=== PATIENT | female | born 1940 | race Caucasian/White ===

== ENCOUNTER → 2017-01-02 | Outpatient (CLI) | payer MEDICARE, MEDICAID ==
[~2017-01-02] MED LIST: ASPIRIN 81M81 MG/TA2 PO; BONIVA1 MG/ML; CALCIUM + D 5001 TAB; CHEMO; INSLANT SC; LAMISIL250 MG PO; LEVOXYL0.1 MG PO; LIPITOR 10MG10 MG; LIPITOR20 MG PO; NEULASTA6 MG/0.6 M; NOVLOG SC; PERCOCET 325 MG1 TA2 PO; PRINIVIL20 MG PO; VITAMIN B121000 MC2 SL
== END ==
LOC: MC.RAD 12:53
DX: Z12.31 Encounter for screening mammogram for malignant neoplasm of breast (principal)

== ENCOUNTER → 2018-01-07 | Outpatient (CLI) | payer MEDICARE, MEDICAID | LOC: MC.RAD 13:23 | DX: Z12.31 Encounter for screening mammogram for malignant neoplasm of breast (principal) ==

== ENCOUNTER 2018-11-04 12:40 | Observation (INO) | payer MEDICARE, MEDICAID ==
[~2018-11-04] VITALS: Ht 160 cm; Wt 66.9 kg
[~2018-11-04 12:40] MED LIST changes: +INSULIN HUMA100 U/ML SQ; -LIPITOR 10MG10 MG; +LIPITOR 10MG10 MG PO; -NOVLOG SC; +VITAMIN B11000 MCG/M IM; -VITAMIN B121000 MC2 SL
[2018-11-04 13:46] LABS: BASO % 0.2 % (0.0-2.0); EOS % 0.3 % (0-4.0); GRAN # 7.2 (1.4-6.5); GRAN % 81.2 % (42.2-75.2); HEMATOCRIT 39.2 % (37.0-47.0); HEMOGLOBIN 12.8 g/dl (12.5-16.0); LYMPH # 1.1 (1.2-3.4); LYMPH % 12.5 % (20.0-51.0); MEAN CELL VOLUME 90 fl (80.0-100.0); MEAN CORPUSCULAR HEMOGLOBIN 29 pg (27.0-31.0); MEAN CORPUSCULAR HGB CONC 33 g/dl (33.0-37.0); MEAN PLATELET VOLUME 12.2 fl (7.4-10.4); MONO # 0.5 (0.1-0.6); MONO % 5.5 % (1.7-9.3); PLATELET COUNT 213 K/mm3 (130-400); RED BLOOD COUNT 4.35 M/mm3 (4.10-5.30); REDCELL DISTRIBUTION WIDTH-CV 14.1 % (11.5-14.5)
[2018-11-04 13:54] LABS: ALANINE AMINOTRANSFERASE 32 U/L (9-52); ALBUMIN 4.2 gm/dL (3.5-5.0); ALKALINE PHOSPHATASE 71 U/L (50-136); ANION GAP 8 mmol/L (7-16); AST,SGOT 27 U/L (15-37); BLOOD UREA NITROGEN 16 mg/dL (7-17); CALCIUM 9.6 mg/dL (8.4-10.2); CARBON DIOXIDE 26 mmol/L (22-30); CHLORIDE 97 mmol/L (98-107); CREATININE, serum 0.71 mg/dL (0.52-1.25); GLUCOSE 306 mg/dL (74-106); POTASSIUM 4.5 mmol/L (3.4-5.0); SODIUM 131 mmol/L (137-145); TOTAL PROTEIN 7.3 gm/dL (6.4-8.2)
[2018-11-04 13:55] LABS: C-REACTIVE PROTEIN < 0.5 mg/dL (0.0-0.9)
[2018-11-04 14:07] LABS: ERYTHROCYTE SEDIMENTATION RATE 1 mm/hr (0-30); TROPONIN-I < 0.012 ng/mL (0.000-0.034)
[2018-11-04 15:48] LABS: COLLECTION METHOD CLEAN CATCH
[2018-11-04 15:58] LABS: MUCOUS Present /lpf; PH 6 (5-8); SQUAMOUS EPITHELIAL 0-2 /hpf; URINE APPEARANCE Clear; URINE BACTERIA None Seen /hpf; URINE BILIRUBIN Negative (NEGATIVE); URINE BLOOD Negative (NEGATIVE); URINE COLOR Straw; URINE GLUCOSE 2+ (NEGATIVE); URINE KETONE 1+ (NEGATIVE); URINE LEUKOCYTE ESTERASE Negative (NEGATIVE); URINE NITRATE Negative (NEGATIVE); URINE PROTEIN(semi-quant) Negative (NEGATIVE); URINE RBC 0-2 /hpf; URINE UROBILINOGEN Negative (NEGATIVE)
--- NOTE | 2018-11-04 20:30 | NUR ---
PT ARRIVED FROM ER VIA GURNEY AND DAUGHTER BY SIDE. PT SEEMED IRRITATED, WENT ADVISED THAT AN ADMISSION WAS NEEDED TO BE DONE, PT RAISED HER VOICE AND STATED THAT I ALREADY HAVE DONE THAT DOWNSTAIRS. I DON'T NEED TO DO IT AGAIN. PT WAS HUNGRY AND WAS GIVEN HER OPTIONS AND SHE DID NOT LIKE HER OPTION. ADVISED WOULD GET HER A SANDWICH BOX AND TRY TO GET HER A TURKEY SANDWICH. PT REQUESTED COKE ZERO, ADVISED HAD DIET PEPSI AND PT DECLINED THE DRINKS. PT DENIED ANY PAIN OR DISCOMFORT AT THIS TIME. CALL LIGHT WITHIN REACH.
[2018-11-04 21:47] LABS: MAGNESIUM 1.4 mg/dL (1.6-2.3)
[2018-11-04 22:18] LABS: TSH w REFLEX 0.261 uIU/mL (0.465-4.680)
[2018-11-04 22:21] VITALS: BP 131/53; PULSE 72; TEMP 98.2
--- NOTE | 2018-11-05 00:30 | NUR ---
PT HAD A SANDWICH EARLIER IN THE SHIFT AND SEEMED TO HELP THE PT'S MOOD. THE PT HAS BEEN VERY PLEASANT, TALKATIVE, AND COOPERATIVE. PT AMBULATED TO THE BATHROOM X1 ASSIST. PT'S GAIT WAS STEADY. PT ADVISED THAT SHE HAD A SLIGHT HEADACHE, BUT FELT BETTER THAN EARLIER. NO FURTHER NEEDS CALL LIGHT WITHIN REACH.
[2018-11-05 01:51] VITALS: BP 153/57; PULSE 64
[2018-11-05 04:08] VITALS: BP 126/62; PULSE 69; TEMP 98.7
[2018-11-05 07:34] LABS: BASO % 0.2 % (0.0-2.0); EOS # 0.1 (0.0-0.7); EOS % 2.2 % (0-4.0); GRAN # 2.3 (1.4-6.5); GRAN % 49.3 % (42.2-75.2); HEMATOCRIT 34.4 % (37.0-47.0); LYMPH # 1.8 (1.2-3.4); LYMPH % 37.6 % (20.0-51.0); MEAN CELL VOLUME 93 fl (80.0-100.0); MEAN CORPUSCULAR HEMOGLOBIN 30 pg (27.0-31.0); MEAN CORPUSCULAR HGB CONC 32 g/dl (33.0-37.0); MEAN PLATELET VOLUME 11.5 fl (7.4-10.4); MONO # 0.5 (0.1-0.6); MONO % 10.5 % (1.7-9.3); PLATELET COUNT 163 K/mm3 (130-400); RED BLOOD COUNT 3.71 M/mm3 (4.10-5.30); REDCELL DISTRIBUTION WIDTH-CV 14.6 % (11.5-14.5)
[2018-11-05 07:44] LABS: CALCIUM 8.4 mg/dL (8.4-10.2); CREATININE, serum 0.71 mg/dL (0.52-1.25); POTASSIUM 4.7 mmol/L (3.4-5.0)
[2018-11-05 08:29] VITALS: BP 138/71; PULSE 64; TEMP 98.4
--- NOTE | 2018-11-05 09:47 | NUR ---
Pt resting in bed with call light within reach; awaiting MRI this AM. Denies further needs at this time; will continue to monitor.
[2018-11-05 11:22] VITALS: BP 139/81; PULSE 60; TEMP 98
--- NOTE | 2018-11-05 13:11 | NUR ---
SW attended clinical rounding and met with patient to discuss discharge planning. Patient lives in [place] independently and alone. Her daughter, Flaquita, lives local and helps when needed. Patients PCP is Dr Matute and she obtains her medications at [facility]. Patient plans on returning home today with no unmet discharge needs.
--- NOTE | 2018-11-05 14:28 | NUR ---
Reviewed all discharge medications, instructions, and follow up appointments with patient and daughter. All questions answered in depth. Tele and INT removed. Pt walked out to vehicle and discharges.
== END 2018-11-05 14:28 | disposition home or self-care (01) ==
LOC: COL.ER 12:40 → MEDICAL 17:15
PROVIDERS: Emergency Medicine; Nurse Practitioner; ADMIT Internal Medicine
DX: M54.2 Cervicalgia (principal); M54.12 Radiculopathy, cervical region; R41.82 Altered mental status, unspecified; T40.4X5A Adverse effect of other synthetic narcotics, initial encounter; I63.81 Other cerebral infarction due to occlusion or stenosis of small artery; E10.9 Type 1 diabetes mellitus without complications; Z79.4 Long term (current) use of insulin; E03.9 Hypothyroidism, unspecified; I10 Essential (primary) hypertension; R20.2 Paresthesia of skin; I08.2 Rheumatic disorders of both aortic and tricuspid valves; G31.9 Degenerative disease of nervous system, unspecified; M48.02 Spinal stenosis, cervical region; Z79.82 Long term (current) use of aspirin; Z79.899 Other long term (current) drug therapy; I63.9 Cerebral infarction, unspecified
CPT/HCPCS: G0378; J1815; J1885; J2405; J2550; J3010; J7030

== ENCOUNTER → 2019-01-12 | Outpatient (CLI) | payer MEDICARE, MEDICAID | LOC: MC.RAD 08:10 | DX: Z12.31 Encounter for screening mammogram for malignant neoplasm of breast (principal) ==